=== PATIENT | female | born 1970 | race African-American/Black ===

== ENCOUNTER 2016-12-02 13:08 | Emergency (ER) | payer MEDICAID ==
[~2016-12-02] VITALS: Ht 165.1 cm; Wt 68.0 kg
[~2016-12-02 13:08] MED LIST: ALBU8.5H8 IH; ALPR2TAB7 PO; AMPH30CA3 PO; HYDROCHLOROTHIAZIDE PO; ZOLP10TA2 PO
--- NOTE | 2016-12-02 13:29 | NUR ---
PATIENT C/O SOB AND CHEST PAIN. STATES SHE HAD BREAST AUGENTATION REVISION SURGERY ON NOVEMBER 13, 2016. PLACED ON A MONITOR. 12 LEAD EKG DONE.
[2016-12-02] MEDS ORDERED: VANC250C4 PO (13:35)
[2016-12-02] MEDS ORDERED: VALS40TA4 PO (13:35)
[2016-12-02] MEDS ORDERED: IV NORMAL SALINE 250 ML IV ONE (14:09)
[2016-12-02] MEDS ORDERED: IOHEXOL 350 100 ML INFUS..BTL ONE (14:09)
[2016-12-02 14:18] LABS: BASOPHILS % (AUTO) 0.3 % (0.0-2.0); EOSINOPHILS # (AUTO) 0.2 K/uL (0.0-0.7); EOSINOPHILS % (AUTO) 2.1 % (0.0-7.0); HEMOGLOBIN 8.8 G/DL (12.0-16.0); LYMPHOCYTES # (AUTO) 2.4 K/UL (0.8-4.8); LYMPHOCYTES % (AUTO) 32.8 % (20.5-51.5); MEAN CORPUSCULAR HEMOGLOBIN 23.9 UUG (27.0-31.0); MEAN CORPUSCULAR HGB CONC 31 g/dL (32.0-37.0); MEAN CORPUSCULAR VOLUME 76.5 FL (81.0-99.0); MONOCYTES # (AUTO) 0.5 K/UL (0.1-1.30); MONOCYTES % (AUTO) 6.8 % (0.0-11.0); NEUTROPHILS # (AUTO) 4.1 K/UL (1.8-8.9); PLATELET COUNT (AUTO) 613 K/UL (150-450); RED BLOOD CELL COUNT(AUTO) 3.66 MIL/UL (4.2-5.4); WHITE BLOOD COUNT (AUTO) 7.2 K/UL (4.0-11.2)
[2016-12-02 14:29] LABS: CREATININE 0.7 mg/dL (0.6-1.3)
[2016-12-02 15:02] LABS: *URINE HCG, QUAL NEGATIVE (NEGATIVE)
[2016-12-02] MEDS ORDERED: NORMAL SALINE FLUSH 10 ML DISP.SYRIN ONE (15:28)
--- NOTE | 2016-12-02 16:05 | NUR ---
DR HAYNES AT BEDSIDE SPEAKING TO PATIENT. SHE IS A/A/O X3 IN NO DISTRESS.
--- NOTE | 2016-12-02 16:20 | NUR ---
IV DC'D, CATHETER TIP INTACT, PRESSURE APPLIED, DRESSING APPLIED. DC AND FOLLOW UP ISNTRUCTIONS GIVEN AND EXPLAINED TO PATIENT WHO STATES SHE UNDERSTANDS ALL ISNTRUCTIONS.
== END 2016-12-02 16:25 | disposition home or self-care (01) ==
LOC: ER 13:08
DX: R07.9 Chest pain, unspecified (principal); R55 Syncope and collapse; I10 Essential (primary) hypertension; F41.9 Anxiety disorder, unspecified; J45.909 Unspecified asthma, uncomplicated; Z88.6 Allergy status to analgesic agent
CPT/HCPCS: 36415; 71275; 80048; 83880; 84484; 84703; 85025; 85379; 85730; 99285; A4663; J3490; J7050; Q9967; 70030-TC